=== PATIENT | male | born 1985 | race African-American/Black ===

== ENCOUNTER → 2020-07-18 08:32 | Outpatient (BNVA) | payer BC, SELFPAY | PROVIDERS: PCP Registered Nurse Community Health; Visit Provider Physician Assistant ==

== ENCOUNTER → 2020-07-25 14:15 | Outpatient (BNVA) | payer BC, SELFPAY | PROVIDERS: PCP Registered Nurse Community Health; Visit Provider Urology ==

== ENCOUNTER 2020-08-13 06:33 | Day surgery (SDC) | payer BC, SELFPAY ==
[2020-08-03 17:51] VITALS: BMI 34.7
--- NOTE | 2020-08-10 12:04 | P.CONAN_ITS ---
Documented by User: Shaylee Dudley 08/10/20 12:05 HPI - Anesthesia Eval Consult details Narrative: 35yo M for Circumcision PMFSH Active Problems Active Problems: All Active Problems (Updated 08/03/20 @ 17:34 by Sue Hoffman RN) Diabetes (Acute) Rectal bleeding (Acute) Family history of colon cancer (Acute) Diarrhea (Acute) Balanitis (Acute) Past Medical History Medical History Back pain Diabetes Hyperlipidemia Hypertension Smoker Family History Family History Maternal Grandmother Diabetes Alzheimer disease Father Cancer Diabetes Maternal Aunt Cancer Maternal Aunt Cancer Social History Social History Household Members: Spouse Alcohol intake: current Alcohol intake frequency: holidays/special occasions only Smoking Status: Current every day smoker Tobacco Type: Cigarette Packs Per Day: 1 Cigarettes Per Day: 1 Smoked in Last 30 Days: Yes Use of substances other than those prescribed or required for medical reasons: No Have you been hit, kicked, punched, or otherwise hurt by someone within the past year? If so, by whom?: No Advance Directives: No Advance Directives Information Provided: No Advance Directives on File: No Recently lost weight without trying: No Meds Allergies Allergy/AdvReac Type Severity Reaction Status Date / Time aspirin [ASPIRIN] Allergy Severe UNKNOWN Verified 07/18/20 08:33 Home Medications Medication Instructions Recorded Confirmed Last Taken Type lisinopril 10 mg tablet 10 mg PO DAILY 07/18/20 08/03/20 Unknown History blood pressure test kit-large #1 ea 07/25/20 Unknown History glipizide 5 mg tablet 5 mg PO BID 07/25/20 08/03/20 Unknown History hydrocortisone 1 % topical cream 1 appl TOPICAL BID 07/25/20 08/03/20 Unknown History lancets 33 gauge #100 ea 07/25/20 Unknown History rosuvastatin 20 mg tablet 20 mg PO BEDTIME 07/25/20 08/03/20 Unknown History insulin glargine [Lantus U-100 12 unit SUBCUT QPM 08/03/20 08/03/20 Unknown History Insulin] Exam Exam Date and Time: August 10, 2020 1204 Height,Weight and Vital Signs: Height 5 ft 9 in Weight 106.594 kg Assessment and Plan Assessment Anesthesia Assessment: Chart Reviewed Documented by User: Martine Enriquez 08/13/20 07:27 [facility] Past Medical History Medical History Back pain Diabetes Hyperlipidemia Hypertension Smoker Family History Family History Maternal Grandmother Diabetes Alzheimer disease Father Cancer Diabetes Maternal Aunt Cancer Maternal Aunt Cancer Social History Social History Household Members: Spouse Alcohol intake: current Alcohol intake frequency: holidays/special occasions only Smoking Status: Current every day smoker Tobacco Type: Cigarette Packs Per Day: 1 Cigarettes Per Day: 1 Smoked in Last 30 Days: Yes Use of substances other than those prescribed or required for medical reasons: No Have you been hit, kicked, punched, or otherwise hurt by someone within the past year? If so, by whom?: No Advance Directives: No Advance Directives Information Provided: No Advance Directives on File: No Recently lost weight without trying: No Meds Allergies Allergy/AdvReac Type Severity Reaction Status Date / Time aspirin [ASPIRIN] Allergy Severe UNKNOWN Verified 07/18/20 08:33 Home Medications Medication Instructions Recorded Confirmed Last Taken Type lisinopril 10 mg tablet 10 mg PO DAILY 07/18/20 08/03/20 Unknown History blood pressure test kit-large #1 ea 07/25/20 Unknown History glipizide 5 mg tablet 5 mg PO BID 07/25/20 08/03/20 Unknown History hydrocortisone 1 % topical cream 1 appl TOPICAL BID 07/25/20 08/03/20 Unknown History lancets 33 gauge #100 ea 07/25/20 Unknown History rosuvastatin 20 mg tablet 20 mg PO BEDTIME 07/25/20 08/03/20 Unknown History insulin glargine [Lantus U-100 12 unit SUBCUT QPM 08/03/20 08/03/20 Unknown History Insulin] Exam Airway Mallampati Class: II TM Dist: >3cm Neck ROM: Full Assessment and Plan Assessment Anesthesia Assessment: Anesthesia Plan Discussed and Chart Reviewed Final Anesthetic Review NPO: Yes ASA Class: II Final Preanesthetic Review: No Changes in Pt Med Stat, Meds/Allgs Chart Reviewed, Consent Obtained/Reviewed and Anes Risks/Benef Reviewed Patient Risk: Intermediate Procedure Risk: Low Assessment/Block/Sedation in SS: Assess/Block/Sedation-SS Anesthetic Plan Anesthetic Plan: GA Disposition: Standard PACU
[2020-08-13 07:16] LABS: Glucose, Whole Blood 210 mg/dL (60-115)
[2020-08-13] MEDS: Lactated Ringers 1,000 ML 100 ML IVCONT (07:33)
--- NOTE | 2020-08-13 07:33 | MHC.SHP ---
Pre-Procedural Eval Section A The patient is an INPATIENT: No Changes since office visit: No Cold of Flu in the past 2 weeks, No New Medical Problems, No Changes in Medication and No Patient answered all questions The History & Physical has been completed within 30 days and I have reviewed it.: Yes Section B Chief Complaint: balanitis Allergies: Allergies Allergy/AdvReac Type Severity Reaction Status Date / Time aspirin [ASPIRIN] Allergy Severe UNKNOWN Verified 07/18/20 08:33 Plan Diagnosis/Plan: Unchanged (circumcision) I have reviewed the history and physical and performed a pertinent physical examination on my patient. No changes have occurred unless specified.
[2020-08-13] MEDS: levoFLOXacin/D5W 500 MG/100 ML PIGGYBACK 100 MG IV (07:51)
[2020-08-13 09:07] VITALS: BP 129/70; PULSE 80; RESP 20; TEMP 36.3; O2SAT 100
--- NOTE | 2020-08-13 09:08 | PM.OP ---
Brief Operative Note Date of Service: 08/13/20 Pre-op diagnosis: Phimosis Post-op diagnosis: same (Circumcision) Procedure: Circumcision Surgeon: Vasu Escobedo MD Anesthesia: GLMA Estimated blood loss (mL): 0 Pathology: other Condition: stable Disposition: same day
--- NOTE | 2020-08-13 09:09 | P.OP_ITS ---
Operative Note Operative Note Date of Service: 08/13/20 Narrative: PreOperative Diagnosis: Balanitis and phimosis Post Operative Diagnosis: Balanitis and phimosis Procedure: Circumcision Surgeon: Dr Vasu Escobedo Anesthesia: General Indications for procedure: Recurring balanitis in inability to withdrawal foreskin of penile glans. Risks and benefits including bleeding, scarring, need for revision surgery been discussed. Procedure: After informed consent was verified the patient was brought to the operating room and placed in a supine position. Anesthesia was administered per protocol. The patient was prepped and draped sterile fashion. Safety pause time-out was performed. Antibiotics have been given. The penis was examined and proximal incision marked that lay just proximal to the resting position of the penile sulcus. This was followed around the circumference of the penis. A penile ring block was performed using 1% lidocai ne with no epinephrine. Approximately 8 cc. The proximal incision was developed with sharp blade running circumferentially around the penis. The skin was to give a 1 cm separation between the foreskin in the remaining penile shaft skin. The foreskin was withdrawn and the penile glans exposed. A a distal incision was made approximately 5 mm proximal to the penile sulcus. At the area of the frenulum care was taken to empty the penile frenulum intact. Using clamps the dorsal skin was elevated. Using Metzenbaum scissors the avascular plane was entered and proximal and distal incision were joined. The bridging skin was elevated and clamped. It was then divided using Bovie. The sleeve of tissue was then removed circumferentially around the penis using cautery in order to minimize bleeding. The shaft was then examined in any bleeding areas were controlled. More local anesthetic was injected into the plane beneath avascular plane to help with postprocedure pain management. The skin edges after they were appropriately examined low reapposed. A 3-0 chromic suture was placed at 12:00 o'clock and 06:00 o'clock positions. Interrupted 3-0 was then placed the 09:00 o'clock and 3 o'clock position. Each quadrant was then filled with 3 sutures using 4-0 chromic. At the completion of the procedure there was adequate hemostasis. The incision was washed and dried. Antibiotic cream was applied to the incision. A Breanna wrap was applied followed by a Coban dressing. Xeroform gauze had been used to cover antibiotic ointment. He tolerated the procedure well and was extubated in the room and transferred in stable condition to the recovery area. Pathology: Foreskin Drains: none
[2020-08-13 09:12] VITALS: BP 129/79; PULSE 86; RESP 20; O2SAT 96
[2020-08-13 09:17] VITALS: BP 126/81; PULSE 88; RESP 20; O2SAT 96
[2020-08-13 09:22] VITALS: BP 122/73; PULSE 81; RESP 20; O2SAT 96
[2020-08-13] MEDS: oxyCODONE HCl Immed Release 5 MG TABLET PO (09:25)
[2020-08-13] MEDS: Acetaminophen 325 MG TABLET 650 MG PO (09:25)
[2020-08-13 09:37] VITALS: BP 119/65; PULSE 76; RESP 16; TEMP 36.2; O2SAT 97
== END 2020-08-13 10:14 | disposition home or self-care (01) ==
PROVIDERS: Visit Provider Urology
PROC: (CPT 54161; principal; 2020-08-13 08:20)
DX: N48.1 Balanitis (principal); N47.1 Phimosis; I10 Essential (primary) hypertension; E11.9 Type 2 diabetes mellitus without complications; Z79.4 Long term (current) use of insulin; Z79.899 Other long term (current) drug therapy; F17.210 Nicotine dependence, cigarettes, uncomplicated
CPT/HCPCS: 54161; 82947; 88304; 88342; J1100; J1956; J2250; J2405; J3010

== ENCOUNTER → 2020-09-14 10:49 | Outpatient (BNVA) | payer BC, SELFPAY | PROVIDERS: Visit Provider Urology ==

== ENCOUNTER 2022-07-26 15:54 | Emergency (ER) | payer MEDICAID, SELFPAY ==
--- NOTE | ~2022-07-26 | CT_ITS ---
EXAMINATION: CT ABDOMEN AND PELVIS WITHOUT CONTRAST CLINICAL INFORMATION: Right flank pain. COMPARISON: None. TECHNIQUE: Multidetector volumetric imaging was performed from the superior aspect of the liver through the pubic symphysis. Sagittal and coronal reformatted images were obtained on the technologist's workstation. This CT examination was performed using dose optimization techniques as appropriate, variously including the following: *Automated exposure control *Adjustment of mA and/or kV according to patient size (this includes techniques or standardized protocols for targeted exams where dose is matched to indication/reason for exam; i.e. extremities or head) *Use of iterative reconstruction technique DLP: 647 mGy-cm FINDINGS: LUNG BASES: The visualized lung bases are unremarkable. LIVER, GALLBLADDER, AND BILIARY TREE: The liver is enlarged measuring 24.6 cm craniocaudally and demonstrates decreased parenchymal attenuation most suggestive of hepatic steatosis. Otherwise, the liver is normal in shape without discrete focal lesion in this limited noncontrast examination. Normal appearance of the gallbladder. No biliary ductal dilatation. PANCREAS: Unremarkable. SPLEEN: Unremarkable. ADRENAL GLANDS: Unremarkable. KIDNEYS AND URETERS: The kidneys are normal in size, shape, and attenuation. No hydronephrosis, hydroureter, or calculi seen. No perinephric stranding. BLADDER: Diffuse urinary bladder wall thickening. GASTROINTESTINAL TRACT: The stomach and small bowel are nondilated. Normal appendix. No pericolonic inflammatory changes or evidence of bowel obstruction. ABDOMINAL WALL: No significant hernia is appreciated. LYMPH NODES: Nonspecific prominent periportal lymph nodes. VASCULAR: Unremarkable. PELVIC VISCERA: Unremarkable. OSSEOUS STRUCTURES: Unremarkable. CT/CT abdomen pelvis wo IV con IMPRESSION: 1. Hepatomegaly and hepatic steatosis. 2. Diffuse urinary bladder wall thickening which could be seen in the setting of cystitis. Correlate with urinalysis. 3. No nephrolithiasis or hydronephrosis. 4. Nonspecific prominent periportal lymph nodes, likely reactive in the setting of hepatic steatosis.
--- NOTE | 2022-07-26 16:18 | ED_ITS ---
HPI - Abdominal Pain General Chief Complaint: Abdominal Pain <Analy Oakes CNP - Last Filed: 07/26/22 16:23> Stated Complaint: right sided abd pain <Analy Oakes CNP - Last Filed: 07/26/22 16:23> Time Seen by Provider: 07/26/22 17:09 <Analy Oakes CNP - Last Filed: 07/26/22 16:23> Source: patient <Allison Ryan NP - Last Filed: 07/26/22 20:25> Mode of arrival: ambulatory <Allison Ryan NP - Last Filed: 07/26/22 20:25> Limitations: language barrier <Allison Ryan NP - Last Filed: 07/26/22 20:25> History of Present Illness HPI narrative: 37-year-old male presents with right-sided abdominal pain that started 2 years ago and dysuria. He also reports urinary retention. <Allison Ryan NP - Last Filed: 07/26/22 20:25> MD elicited complaint: abdominal pain and flank pain <Allison Ryan NP - Last Filed: 07/26/22 20:25> Onset (ago): day(s) (2) <Allison Ryan NP - Last Filed: 07/26/22 20:25> Pain Consistency: constant <Allison Ryan NP - Last Filed: 07/26/22 20:25> Severity: moderate <Allison Ryan NP - Last Filed: 07/26/22 20:25> Quality: aching <Allison Ryan NP - Last Filed: 07/26/22 20:25> Migration to: RLQ and R flank <Allison Ryan NP - Last Filed: 07/26/22 20:25> Relieving factors: nothing <Allison Ryan NP - Last Filed: 07/26/22 20:25> Associated symptoms: other (Testicular pain) <Allison Ryan NP - Last Filed: 07/26/22 20:25> Related Data Home Medications: Home Medications Medication Instructions Recorded Confirmed lisinopril 10 mg tablet 10 mg PO DAILY 07/18/20 08/03/20 blood pressure test kit-large #1 ea 07/25/20 glipizide 5 mg tablet 5 mg PO BID 07/25/20 08/03/20 hydrocortisone 1 % topical cream 1 appl topical BID 07/25/20 08/03/20 lancets 33 gauge #100 ea 07/25/20 rosuvastatin 20 mg tablet 20 mg PO BEDTIME 07/25/20 08/03/20 insulin glargine 100 unit/mL 12 unit subcut QPM 08/03/20 08/03/20 subcutaneous cartridge Previous Rx's Medication Instructions Recorded clotrimazole-betamethasone 1 1 appl topical BID 4 weeks #15 07/25/20 %-0.05 % topical cream grams sulfamethoxazole 400 1 tab PO DAILY 10 days #10 tabs 08/13/20 mg-trimethoprim 80 mg tablet (Bactrim) tramadol 50 mg tablet 50 mg PO Q6H PRN pain (scale score 08/13/20 4-6) #14 tabs cefuroxime axetil 500 mg tablet 500 mg PO Q12H 10 days #20 tabs 07/26/22 <Analy Oakes CNP - Last Filed: 07/26/22 16:23> Allergies/Adverse Reactions: Allergies Allergy/AdvReac Type Severity Reaction Status Date / Time aspirin [ASPIRIN] Allergy Severe UNKNOWN Verified 07/26/22 16:19 <Analy Oakes CNP - Last Filed: 07/26/22 16:23> Review of Systems Review of Systems Constitutional: No Fever, No Chills Cardiovascular: No Chest Pain, No SOB Respiratory: No Cough, No Dyspnea Gastrointestinal: No Nausea, No Vomiting, No Diarrhea, positive abdominal Pain and right flank pain Genitourinary: Positive Dysuria, No Hematuria Musculoskeletal: No joint pain, No Myalgias, No Joint Swelling Skin: No Skin lacerations, No rash Neuro: No Weakness, No Numbness, No Paresthesias, No Dizziness, No Headache <Allison Ryan NP - Last Filed: 07/26/22 20:25> Yes all other systems are reviewed and are negative <Allison Ryan NP - Last Filed: 07/26/22 20:25> PMFSH Past Medical History Attestation statement: The following information was validated with the patient. <Allison Ryan NP - Last Filed: 07/26/22 20:25> Source: old records reviewed <Allison Ryan NP - Last Filed: 07/26/22 20:25> Medical History: Medical History Back pain Diabetes Hyperlipidemia Hypertension Smoker <Analy Oakes CNP - Last Filed: 07/26/22 16:23> Family History Family History: Family History Maternal Grandmother Diabetes Alzheimer disease Father Cancer Diabetes Maternal Aunt Cancer Maternal Aunt Cancer <Analy Oakes CNP - Last Filed: 07/26/22 16:23> Social History Social History: Social History Household Members: Spouse Alcohol intake: current Alcohol intake frequency: holidays/special occasions only Cigarette Packs Per Day: 1 Cigarettes Per Day: 1 Advance Directives: No Advance Directives Information Provided: No <Analy Oakes CNP - Last Filed: 07/26/22 16:23> Physical Exam ED Vital Signs: Vital Signs - 24 hr 07/26/22 16:19 07/26/22 17:19 07/26/22 17:57 Temperature 98.2 F 98.5 F 98.5 F Pulse Rate 89 76 82 Respiratory Rate 16 18 19 Blood Pressure 119/80 120/72 101/65 Pulse Oximetry 100 97 97 Oxygen Delivery Method Room Air Room Air Room Air BMI result Body Mass Index 32.9 <Analy Oakes CNP - Last Filed: 07/26/22 16:23> Vital Signs - 24 hr 07/26/22 16:19 07/26/22 17:19 07/26/22 17:57 Temperature 98.2 F 98.5 F 98.5 F Pulse Rate 89 76 82 Respiratory Rate 16 18 19 Blood Pressure 119/80 120/72 101/65 Pulse Oximetry 100 97 97 Oxygen Delivery Method Room Air Room Air Room Air BMI result Body Mass Index 32.9 <Allison Ryan NP - Last Filed: 07/26/22 20:25> Appearance: Alert. Oriented X3. No acute distress. Eyes: Pupils equal, round and reactive to light. Neck: Normal inspection. Neck supple. CVS: Normal heart rate and rhythm. Respiratory: No respiratory distress. Abdomen: Soft and nontender. Skin: Skin warm and dry. Normal skin color. Neuro: No motor deficit. No sensory deficit. Cranial nerves 2-12 intact. <Allison Ryan NP - Last Filed: 07/26/22 20:25> Course Course Course Narrative: This is an RME: Additional HPI, ROS, PE not included below will be deferred to primary provider. Patient is a 37 [id number] who presents to emergency department for evaluation of abdominal pain. Patient reports onset of right mid/upper abdominal pain 2 days ago that is wrapping around to his back/flank. Yesterday he developed dysuria, voiding small amounts at a time, and nausea. Denies hematuria. Denies fevers, chills, vomiting, diarrhea, constipation. Expresses concern for potential history of nephrolithiasis in the past, though this is uncertain. PE: R CVAT Plan: Labs, urinalysis, CT abdomen and pelvis <Analy Oakes CNP - Last Filed: 07/26/22 16:23> This is an RME: Additional HPI, ROS, PE not included below will be deferred to primary provider. Patient is a 37 [id number] who presents to emergency department for evaluation of abdominal pain. Patient reports onset of right mid/upper abdominal pain 2 days ago that is wrapping around to his back/flank. Yesterday he developed dysuria, voiding small amounts at a time, and nausea. Denies hematuria. Denies fevers, chills, vomiting, diarrhea, constipation. Expresses concern for potential history of nephrolithiasis in the past, though this is uncertain. PE: R CVAT Plan: Labs, urinalysis, CT abdomen and pelvis 37-year-old male presents with abdominal pain radiating to his right flank, has had dysuria, urinary retention, and reports of testicular pain for over year. Patient states that he is not sexually active although he is . He also reports to be diabetic and not taking his medications. Patient was very vague about his reasoning up not taking his medications, states that he is an appointment in September to establish care. Patient states to have nausea but is asking for a sandwich. I did offer Zofran however he instead of medications he preferred to eat. Patient's labs were completed while he was in the emergency department waiting room as well as a CT scan of the abdomen and pelvis. CT scan indicate cystitis of the bladder. Considering patient's symptoms, I feel that this patient should be tested for STI infection, however he declines stating that he has not been sexually active for over year. He does have a history of balanitis. He does have testicular pain, I did offer scrotal ultrasound however he declined this as well. I did describe in explicit detail the risks of not complying with care. He states that his A1c is 13. I also described in detail risks of not caring for his diabetes which includes kidney disease, heart disease, impotence, peripheral artery disease. He also reports that his father was diagnosed with colon cancer at the age of 40, searing this patient is 37, he should have a colonoscopy. I did also discuss this with him. CT scan does not indicate any obvious obstructions or growth consistent with colon cancer however I did inform the patient that colonoscopy is the best test for detecting colon cancer. 18:00 will treat with cefuroxime for cystitis, patient declines treatments for CHEK2 transmitted infections. Patient will be discharge home. diamond finishing supervisor utilized for all correspondence. Google translate utilized for discharge instructions. <Allison Ryan NP - Last Filed: 07/26/22 20:25> Medical Decision Making Differential Diagnosis Differential Diagnoses: The differential diagnosis associated with the presentation includes <Allison Ryan NP - Last Filed: 07/26/22 20:25> Cystitis, STI, medical noncompliance <Allison Ryan NP - Last Filed: 07/26/22 20:25> Lab Data MDM Lab Attestation statement: I reviewed the patient's lab results. <Allison Ryan NP - Last Filed: 07/26/22 20:25> Result Diagrams: 07/26/22 16:54 07/26/22 16:54 <Analy Oakes CNP - Last Filed: 07/26/22 16:23> Labs: Lab Results 07/26/22 07/26/22 07/26/22 Range/Units 16:54 16:54 17:29 WBC 10.5 (4.8-10.8) X10*3/uL RBC 5.02 (4.60-5.80) X10*6/uL Hgb 14.2 (14.0-18.0) g/dl Hct 41.4 L (42.0-52.0) % MCV 82.5 (80.0-98.0) fL MCH 28.3 (27.0-33.0) pg MCHC 34.3 (31.0-36.0) g/dl RDW 12.5 (11.0-16.0) % Plt Count 215 (160-400) X10*3/uL MPV 11.0 (9.4-12.4) fL Immature Gran % (Auto) 0.4 (0.0-0.4) % Neut % (Auto) 65.1 (45-73) % Lymph % (Auto) 25.4 (20-40) % Harris % (Auto) 5.6 (2-11) % Eos % (Auto) 3.2 (0-4) % Baso % (Auto) 0.3 (0-2) % Lymph # (Auto) 2.7 (1.2-4.9) X10*3/uL Harris # (Auto) 0.6 (0.1-1.2) X10*3/uL Eos # (Auto) 0.3 (0.0-0.4) X10*3/uL Baso # (Auto) 0.0 (0.0-0.2) X10*3/uL Abs Immat Gran (auto) 0.04 H (0.00-0.03) X10*3/uL Absolute Neuts (auto) 6.9 (2.0-8.3) x10*3/uL Absolute Nucleated RBC 0.000 (0.0-0.012) X10*3/uL Nucleated RBC % (auto) 0.0 (0.0-0.2) /100WBC Sodium 139 (135-145) mmol/L Potassium 4.6 (3.3-5.1) mmol/L Chloride 102 (96-108) mmol/L Carbon Dioxide 25 (22-29) mmol/L Anion Gap 17 (12-20) BUN 12 (9-16) mg/dL Creatinine 0.79 (0.5-1.4) mg/dL Estim Creat Clear Calc 151.5 Estimated GFR > 60 Random Glucose 230 H (60-115) mg/dL Calcium 9.6 (8.4-10.2) mg/dL Total Bilirubin 0.3 (0.0-1.0) mg/dL AST 23 (5-37) U/L ALT 36 (0-40) U/L Alkaline Phosphatase 94 (39-117) U/L Total Protein 7.2 (6.5-8.0) g/dL Albumin 4.4 (3.5-5.0) g/dL Lipase 14 (8-78) U/L Urine Color Yellow Urine Appearance Clear Urine pH 6.0 (5.0-9.0) Ur Specific [place] 1.025 (1.005-1.025) Urine Protein Trace (Neg-Trace) mg/dL Urine Glucose (UA) >=1000 H (Negative) mg/dL Urine Ketones Negative (Negative) mg/dL Urine Blood Negative (Negative) Urine Nitrite Negative (Negative) Ur Leukocyte Esterase Negative (Negative) Urine RBC 0-2 (0-2) /HPF Urine WBC 0-5 (0-5) /HPF Ur Squamous Epith Cells 0-2 (0-2) /HPF Urine Bacteria None Seen (None Seen) Hyaline Casts 0-2 (0-2) /LPF <Analy Oakes, HOUSEHOLD APPLIANCES SALESPERSON - Last Filed: 07/26/22 16:23> Lab Results 07/26/22 07/26/22 07/26/22 Range/Units 16:54 16:54 17:29 WBC 10.5 (4.8-10.8) X10*3/uL RBC 5.02 (4.60-5.80) X10*6/uL Hgb 14.2 (14.0-18.0) g/dl Hct 41.4 L (42.0-52.0) % MCV 82.5 (80.0-98.0) fL MCH 28.3 (27.0-33.0) pg MCHC 34.3 (31.0-36.0) g/dl RDW 12.5 (11.0-16.0) % Plt Count 215 (160-400) X10*3/uL MPV 11.0 (9.4-12.4) fL Immature Gran % (Auto) 0.4 (0.0-0.4) % Neut % (Auto) 65.1 (45-73) % Lymph % (Auto) 25.4 (20-40) % Harris % (Auto) 5.6 (2-11) % Eos % (Auto) 3.2 (0-4) % Baso % (Auto) 0.3 (0-2) % Lymph # (Auto) 2.7 (1.2-4.9) X10*3/uL Harris # (Auto) 0.6 (0.1-1.2) X10*3/uL Eos # (Auto) 0.3 (0.0-0.4) X10*3/uL Baso # (Auto) 0.0 (0.0-0.2) X10*3/uL Abs Immat Gran (auto) 0.04 H (0.00-0.03) X10*3/uL Absolute Neuts (auto) 6.9 (2.0-8.3) x10*3/uL Absolute Nucleated RBC 0.000 (0.0-0.012) X10*3/uL Nucleated RBC % (auto) 0.0 (0.0-0.2) /100WBC Sodium 139 (135-145) mmol/L Potassium 4.6 (3.3-5.1) mmol/L Chloride 102 (96-108) mmol/L Carbon Dioxide 25 (22-29) mmol/L Anion Gap 17 (12-20) BUN 12 (9-16) mg/dL Creatinine 0.79 (0.5-1.4) mg/dL Estim Creat Clear Calc 151.5 Estimated GFR > 60 Random Glucose 230 H (60-115) mg/dL Calcium 9.6 (8.4-10.2) mg/dL Total Bilirubin 0.3 (0.0-1.0) mg/dL AST 23 (5-37) U/L ALT 36 (0-40) U/L Alkaline Phosphatase 94 (39-117) U/L Total Protein 7.2 (6.5-8.0) g/dL Albumin 4.4 (3.5-5.0) g/dL Lipase 14 (8-78) U/L Urine Color Yellow Urine Appearance Clear Urine pH 6.0 (5.0-9.0) Ur Specific [place] 1.025 (1.005-1.025) Urine Protein Trace (Neg-Trace) mg/dL Urine Glucose (UA) >=1000 H (Negative) mg/dL Urine Ketones Negative (Negative) mg/dL Urine Blood Negative (Negative) Urine Nitrite Negative (Negative) Ur Leukocyte Esterase Negative (Negative) Urine RBC 0-2 (0-2) /HPF Urine WBC 0-5 (0-5) /HPF Ur Squamous Epith Cells 0-2 (0-2) /HPF Urine Bacteria None Seen (None Seen) Hyaline Casts 0-2 (0-2) /LPF <Allison Ryan NP - Last Filed: 07/26/22 20:25> Independent Interpretation I performed an independent interpretation of an: CT Scan <Allison Ryan NP - Last Filed: 07/26/22 20:25> Radiology Impression Discussion of test interpretation with radiology: I have reviewed the radiologist's reading. <Allison Ryan NP - Last Filed: 07/26/22 20:25> Radiologist Impression: EXAMINATION: CT ABDOMEN AND PELVIS WITHOUT CONTRAST? CLINICAL INFORMATION: Right flank pain.? COMPARISON: None.? TECHNIQUE: Multidetector volumetric imaging was performed from the superior aspect of the liver through the pubic symphysis. Sagittal and coronal reformatted images were obtained on the technologist's workstation.? This CT examination was performed using dose optimization techniques as appropriate, variously including the following: *Automated exposure control *Adjustment of mA and/or kV according to patient size (this includes techniques or standardized protocols for targeted exams where dose is matched to indication/reason for exam; i.e. extremities or head) *Use of iterative reconstruction technique DLP: 647 mGy-cm FINDINGS: LUNG BASES: The visualized lung bases are unremarkable.? LIVER, GALLBLADDER, AND BILIARY TREE: The liver is enlarged measuring 24.6 cm craniocaudally and demonstrates decreased parenchymal attenuation most suggestive of hepatic steatosis. Otherwise, the liver is normal in shape without discrete focal lesion in this limited noncontrast examination. Normal appearance of the gallbladder. No biliary ductal dilatation. PANCREAS: Unremarkable.? SPLEEN: Unremarkable.? ADRENAL GLANDS: Unremarkable.? KIDNEYS AND URETERS: The kidneys are normal in size, shape, and attenuation. No hydronephrosis, hydroureter, or calculi seen. No perinephric stranding. ? BLADDER: Diffuse urinary bladder wall thickening.? GASTROINTESTINAL TRACT: The stomach and small bowel are nondilated. Normal appendix. No pericolonic inflammatory changes or evidence of bowel obstruction.? ABDOMINAL WALL: No significant hernia is appreciated.? LYMPH NODES: Nonspecific prominent periportal lymph nodes. VASCULAR: Unremarkable. PELVIC VISCERA: Unremarkable.? OSSEOUS STRUCTURES: Unremarkable.? CT/CT abdomen pelvis wo IV con IMPRESSION: 1.? Hepatomegaly and hepatic steatosis. 2.? Diffuse urinary bladder wall thickening which could be seen in the setting of cystitis. Correlate with urinalysis. 3.? No nephrolithiasis or hydronephrosis. 4.? Nonspecific prominent periportal lymph nodes, likely reactive in the setting of hepatic steatosis. <Allison Ryan NP - Last Filed: 07/26/22 20:25> External Record Review External record reviewed: Outpatient record and Prior outpatient labs <Allison Ryan NP - Last Filed: 07/26/22 20:25> Chronic Conditions Patient?s care impacted by: Diabetes <Allison Ryan NP - Last Filed: 07/26/22 20:25> Discharge Plan Discharge Clinical Impression: Abdominal pain, Pain in both testicles, Cystitis <Analy Oakes CNP - Last Filed: 07/26/22 16:23> Patient Disposition: Home, Self-Care <Analy Oakes CNP - Last Filed: 07/26/22 16:23> Instructions: Testicle Pain (ED), Abdominal Pain (ED), Interstitial Cystitis (ED) <Analy Oakes CNP - Last Filed: 07/26/22 16:23> Additional Instructions: Le evaluaron por dolor abdominal. La tomograf?a computarizada muestra cistitis. [place] podr?a ser katalina infecci?n de la vejiga o katalina infecci?n de transmisi?n sexual. Reportaste dolor testicular claudia m?s de un a?o. [place] hacerte katalina ecograf?a testicular. Rechaz? ellyn servicio mientras estaba en el departamento de emergencias. [place] cefuroxima dos veces al d?a claudia los pr?ximos 10 d?as. Ellyn medicamento es un antibi?nagi. Contin?e el seguimiento con johnson marie de atenci?n primaria en [place]. Tiene antecedentes familiares de c?ncer de colon y tiene diabetes no tratada. La diabetes no tratada te matar?. [place] por elegir ellyn departamento de emergencias para johnson evaluaci?n. Por favor, peg un seguimiento con el m?dico de atenci?n primaria seg?n sea necesario. Regrese al departamento de emergencias por cualquier s?ntoma nuevo, preocupante o que empeore. You were evaluated for abdominal pain. CT scan shows cystitis. This could be a bladder infection or sexually transmitted infection. You did report testicular pain for over a year. You must have a testicular ultrasound. You declined this service while you were in the emergency department. Please take cefuroxime twice a day for the next 10 days. This medication is an antibiotic. Continue follow-up with your primary care appointment in September. You have a family history of colon cancer, and you have untreated diabetes. Untreated diabetes will kill you. Thank you for choosing this emergency department for evaluation. Please follow-up with primary care physician as needed. Return to the emergency department for any new, concerning, or worsening symptoms. <Analy Oakes CNP - Last Filed: 07/26/22 16:23> Prescriptions: New cefuroxime axetil 500 mg tablet 500 mg PO Q12H 10 Days Qty: 20 0RF No Action insulin glargine 100 unit/mL Cartridge 12 unit SUBCUT QPM tramadol 50 mg tablet 50 mg PO Q6H PRN (Reason: pain (scale score 4-6)) Qty: 14 0RF sulfamethoxazole-trimethoprim [Bactrim] 400-80 mg tablet 1 tab PO DAILY 10 Days Qty: 10 0RF lisinopril 10 mg tablet 10 mg PO DAILY clotrimazole-betamethasone 1-0.05 % cream 1 appl topical BID 28 Days Qty: 15 0RF Rx Instructions: Apply thin coat 2 times per day <Analy Oakes CNP - Last Filed: 07/26/22 16:23> Interventions: ED Discharge Assessment Last Done: 07/26/22 18:24 <Analy Oakes CNP - Last Filed: 07/26/22 16:23> Discharge Date/Time: 07/26/22 18:25 <Analy Oakes CNP - Last Filed: 07/26/22 16:23>
[2022-07-26 16:19] VITALS: BP 119/80; PULSE 89; RESP 16; TEMP 36.8; O2SAT 100; BMI 32.9
[2022-07-26 16:57] LABS: MANUAL DIFF FLAG NO
[2022-07-26 16:59] LABS: Basophils Percent Auto 0.3 % (0-2); Eosinophils Absolute Auto 0.3 X10*3/uL (0.0-0.4); Eosinophils Percent Auto 3.2 % (0-4); Hematocrit 41.4 % (42.0-52.0); Hemoglobin 14.2 g/dl (14.0-18.0); Imm Gran Abs Auto 0.04 X10*3/uL (0.00-0.03); Imm Gran Pct Auto 0.4 % (0.0-0.4); Lymphocytes Absolute Auto 2.7 X10*3/uL (1.2-4.9); Lymphocytes Percent Auto 25.4 % (20-40); Mean Corpuscular HGB Conc 34.3 g/dl (31.0-36.0); Mean Corpuscular Hemoglobin 28.3 pg (27.0-33.0); Mean Corpuscular Volume 82.5 fL (80.0-98.0); Monocytes Absolute Auto 0.6 X10*3/uL (0.1-1.2); Monocytes Percent Auto 5.6 % (2-11); Neutrophils Absolute Auto 6.9 x10*3/uL (2.0-8.3); Neutrophils Percent Auto 65.1 % (45-73); Platelet Count 215 X10*3/uL (160-400); Red Blood Count 5.02 X10*6/uL (4.60-5.80); Red Cell Distribution Width 12.5 % (11.0-16.0); White Blood Count 10.5 X10*3/uL (4.8-10.8)
[2022-07-26 17:19] VITALS: BP 120/72; PULSE 76; RESP 18; TEMP 36.9; O2SAT 97
[2022-07-26 17:24] LABS: Alanine Aminotransferase 36 U/L (0-40); Albumin Level 4.4 g/dL (3.5-5.0); Alkaline Phosphatase 94 U/L (39-117); Anion Gap 17 (12-20); Aspartate Amino Transferase 23 U/L (5-37); Bilirubin Total 0.3 mg/dL (0.0-1.0); Blood Urea Nitrogen 12 mg/dL (9-16); Calcium 9.6 mg/dL (8.4-10.2); Carbon Dioxide 25 mmol/L (22-29); Chloride 102 mmol/L (96-108); Creatinine Clr Calc Pharmacy 151.5; Estimated Glomerular Filt Rate > 60; Glucose Random 230 mg/dL (60-115); Lipase 14 U/L (8-78); Potassium 4.6 mmol/L (3.3-5.1); Sodium 139 mmol/L (135-145); Total Protein 7.2 g/dL (6.5-8.0)
[2022-07-26 17:41] LABS: Appearance Urine Clear; Color Urine Yellow; Glucose Urine UA >=1000 mg/dL (Negative); Leukocyte Esterase Urine Negative (Negative); Nitrite Urine Negative (Negative); Specific Gravity - Urine 1.025 (1.005-1.025); UMIC TRIGGER UACC YES; Urine Blood Negative (Negative); Urine Ketones Negative (Negative); Urine Protein Trace mg/dL (Neg-Trace)
[2022-07-26 17:49] LABS: Bacteria Urine None Seen (None Seen); Hyaline Casts Urine 0-2 /LPF (0-2); RBC Urine 0-2 /HPF (0-2); Squamous Epithelial Cell Urine 0-2 /HPF (0-2); WBC Urine 0-5 /HPF (0-5)
[2022-07-26 17:57] VITALS: BP 101/65; PULSE 82; RESP 19; TEMP 36.9; O2SAT 97
== END 2022-07-26 18:25 | disposition home or self-care (01) ==
PROVIDERS: Nurse Practitioner Family; Emergency Provider Emergency Medicine; PCP Physical Medicine & Rehabilitation
DX: N30.90 Cystitis, unspecified without hematuria (principal); R10.9 Unspecified abdominal pain; N50.812 Left testicular pain; N50.811 Right testicular pain; E11.9 Type 2 diabetes mellitus without complications; I10 Essential (primary) hypertension; E78.5 Hyperlipidemia, unspecified; F17.210 Nicotine dependence, cigarettes, uncomplicated; Z79.02 Long term (current) use of antithrombotics/antiplatelets; Z79.4 Long term (current) use of insulin; Z79.899 Other long term (current) drug therapy
CPT/HCPCS: 36415; 74176; 80053; 81001; 83690; 85025; 99283; 99284

== ENCOUNTER → 2023-12-07 11:24 | Outpatient (BNVA) | payer SELFPAY | PROVIDERS: PCP Physical Medicine & Rehabilitation; Visit Provider Physician Assistant Medical | DX: Z02.79 Encounter for issue of other medical certificate (principal); Z13.29 Encounter for screening for other suspected endocrine disorder; Z13.1 Encounter for screening for diabetes mellitus | CPT/HCPCS: 82947 ==

== ENCOUNTER 2024-10-05 10:18 | Emergency (ER) | payer MEDICAID, SELFPAY ==
--- NOTE | ~2024-10-05 | CT_ITS ---
EXAMINATION: CT ABDOMEN PELVIS WITH IV CONTRAST HISTORY: Right sided abdominal pain/tenderness COMPARISON: Comparison is made with the prior examination dated 07/26/2022. TECHNIQUE: CT scan of the abdomen and pelvis was performed following administration of 85 mL Omnipaque 350 using standard departmental protocol. Coronal and sagittal reformatted images were generated and reviewed. Oral contrast material was not administered at the request of the referring physician. This CT exam was performed with one or more of the following dose reduction techniques: automated exposure control, adjustment of the mA and/or kV according to patient size, use of iterative reconstruction technique. DLP: 704 mGy-cm FINDINGS: LOWER CHEST: The visualized lung bases are clear. There is no pleural effusion. CARDIOVASCULATURE: The heart is normal in size. There is no pericardial effusion. LIVER: The liver is normal in size and contour, but demonstrates diffusely decreased attenuation, consistent with steatosis. No liver mass is identified. The hepatic and portal veins are patent. GALLBLADDER / BILE DUCTS: The gallbladder is unremarkable. There is no intra or extrahepatic biliary ductal dilatation. SPLEEN: The spleen is normal in size. No focal splenic lesion is identified. PANCREAS: The pancreas is unremarkable in appearance. ADRENAL GLANDS: Within normal limits. KIDNEYS/RETROPERITONEUM: No renal calculi are identified. There is no hydronephrosis. No renal masses are identified. LYMPH NODES: No abdominal or pelvic lymphadenopathy. VASCULATURE: The abdominal aorta is normal in caliber. MESENTERY/PERITONEUM: No free fluid. No masses. There is no free intraperitoneal gas. STOMACH: The stomach is unremarkable. SMALL BOWEL: The small bowel is normal in caliber. COLON: The colon is unremarkable. APPENDIX: Normal. URINARY BLADDER/PELVIC ORGANS: The urinary bladder is unremarkable. The prostate is normal in size. BONES / SOFT TISSUES: No suspicious bony or soft tissue abnormalities. CT/CT abdomen pelvis w IV con IMPRESSION: Hepatic steatosis. Otherwise unremarkable contrast-enhanced CT of the abdomen and pelvis. Electronically signed by: Elfego Nassar MD 10/05/2024 01:52 PM EDT
--- NOTE | ~2024-10-05 | XR_ITS ---
EXAMINATION: XR CHEST CLINICAL INFORMATION: Right sided pain, smoker COMPARISON: None available. TECHNIQUE: 2 views of the chest were obtained. FINDINGS: No significant abnormality is noted involving the heart, lungs, mediastinum, bony thorax or soft tissues. XR/XR chest 2V IMPRESSION: Unremarkable chest examination. Electronically signed by: Geraldo Calix MD 10/05/2024 11:37 AM EDT RP
--- NOTE | ~2024-10-05 | US_ITS ---
EXAMINATION: US ABDOMEN LIMITED HISTORY: RUQ pain/tenderness TECHNIQUE: Real-time grayscale ultrasound imaging of the gallbladder was performed and images were reviewed. COMPARISON: Correlation is made with a CT of the abdomen with contrast dated 07/26/2022. FINDINGS: The gallbladder is unremarkable without evidence of calculi, wall thickening, or pericholecystic fluid. There is no sonographic Garg sign. The common bile duct is normal in caliber measuring 5 mm in diameter. Incidental note is made of hepatic steatosis. US/US abdomen limited IMPRESSION: Unremarkable sonographic examination of the gallbladder. Electronically signed by: Elfego Nassar MD 10/05/2024 11:50 AM EDT
[2024-10-05 10:25] VITALS: BP 133/74; PULSE 72; RESP 16; TEMP 37.1; O2SAT 100; BMI 32.2
[2024-10-05 10:40] LABS: MANUAL DIFF FLAG NO
[2024-10-05 10:43] LABS: Basophils Percent Auto 0.2 % (0-2); Eosinophils Absolute Auto 0.2 X10*3/uL (0.0-0.4); Eosinophils Percent Auto 2.4 % (0-4); Hematocrit 39.8 % (42.0-52.0); Hemoglobin 13.9 g/dl (14.0-18.0); Imm Gran Abs Auto 0.04 X10*3/uL (0.00-0.03); Imm Gran Pct Auto 0.4 % (0.0-0.4); Lymphocytes Absolute Auto 2.4 X10*3/uL (1.2-4.9); Lymphocytes Percent Auto 24.8 % (20-40); Mean Corpuscular HGB Conc 34.9 g/dl (31.0-36.0); Mean Corpuscular Hemoglobin 28.6 pg (27.0-33.0); Mean Corpuscular Volume 81.9 fL (80.0-98.0); Mean Platelet Volume 10.3 fL (9.4-12.4); Monocytes Absolute Auto 0.6 X10*3/uL (0.1-1.2); Neutrophils Absolute Auto 6.4 x10*3/uL (2.0-8.3); Neutrophils Percent Auto 66.2 % (45-73); Platelet Count 217 X10*3/uL (160-400); Red Blood Count 4.86 X10*6/uL (4.60-5.80); Red Cell Distribution Width 12.4 % (11.0-16.0); White Blood Count 9.7 X10*3/uL (4.8-10.8)
--- NOTE | 2024-10-05 10:53 | PC.NURSE ---
Pt comes to ED today from home with c/o R abd pain 03/03 with radiation to R flank and R testicle. Pt reports pain has been present x5 months however yesterday the pain increased and he was unable to do much beside lay down. He states he attempted to get seen at [facility] but the wait was too long therefore he didn't stay. Pt reports associated ribbon like stool and pain to R testicle when urinating. Blood work pending and awaiting urine spec at this time.
--- NOTE | 2024-10-05 11:01 | ED.GENADULT ---
HPI - General Adult General Chief complaint: Abdominal Pain Stated complaint: R Side Pain Radiating To Back Time Seen by Provider: 10/05/24 11:01 History of Present Illness ED Provider: Andres BRADY narrative: The patient is a 39-year-old male who says that he has a long history of smoking. He has been smoking since the age of 11 he says. He says that for a long time he smoked 2 packs of cigarettes per day but more recently has been only smoking 1 pack of cigarettes per day. Nevertheless he is very worried about the possibility of developing cancer. He says that he has had right-sided abdominal pain for several months. Over the last week it has been worse and even more so over the last 24 hours. He says that he went to the [facility] Emergency room yesterday but there was an 8 hour wait any ultimately left without being seen. He comes here today. He does not think he has had fevers or anything in the way of sweats or chills. No significant nausea, vomiting, or diarrhea. No recent sick contacts. He has no history of abdominal surgeries. He says the pain may has been worse over the last 24 hours after eating but he is not certain. The patient believes he has a history of diabetes and hypertension but he does not have a regular doctor and is on no medications currently. He describes himself as being very irresponsible with regard to his health. Related Data Home Medications ?Medication ?Instructions ?Recorded ?Confirmed lisinopril 10 mg tablet 10 mg PO DAILY 07/18/20 08/03/20 blood pressure test kit-large #1 ea 07/25/20 glipizide 5 mg tablet 5 mg PO BID 07/25/20 08/03/20 hydrocortisone 1 % topical cream 1 appl topical BID 07/25/20 08/03/20 lancets 33 gauge #100 ea 07/25/20 rosuvastatin 20 mg tablet 20 mg PO BEDTIME 07/25/20 08/03/20 insulin glargine 100 unit/mL 12 unit subcut QPM 08/03/20 08/03/20 subcutaneous cartridge Previous Rx's ?Medication ?Instructions ?Recorded clotrimazole-betamethasone 1 1 appl topical BID 4 weeks #15 07/25/20 %-0.05 % topical cream grams sulfamethoxazole 400 1 tab PO DAILY 10 days #10 tabs 08/13/20 mg-trimethoprim 80 mg tablet (Bactrim) tramadol 50 mg tablet 50 mg PO Q6H PRN pain (scale score 08/13/20 4-6) #14 tabs cefuroxime axetil 500 mg tablet 500 mg PO Q12H 10 days #20 tabs 07/26/22 acetaminophen 500 mg capsule 1,000 mg (2 x 500 mg) PO Q8H PRN 10/05/24 fever or pain #14 caps famotidine 40 mg tablet 40 mg PO DAILY #30 tabs 10/05/24 metformin 500 mg tablet 500 mg PO BID #90 tabs 10/05/24 Allergies Allergy/AdvReac Type Severity Reaction Status Date / Time aspirin [ASPIRIN] Allergy Severe UNKNOWN Verified 10/05/24 10:27 Review of Systems Review of Systems: Yes all other systems are reviewed and are negative [facility] Past Medical History Medical History Back pain Diabetes Hyperlipidemia Hypertension Smoker Family History Family History Maternal Grandmother Diabetes Alzheimer disease Father Cancer Diabetes Maternal Aunt Cancer Maternal Aunt Cancer Social History Social History Household Members: Spouse Alcohol intake: current Alcohol intake frequency: holidays/special occasions only Cigarette Packs Per Day: 1 Cigarettes Per Day: 1 Smoked in Last 30 Days: Yes Use of substances other than those prescribed or required for medical reasons: Yes Substance Use Type: Marijuana Advance Directives: No Advance Directives Information Provided: Yes Physical Exam ED Vital Signs: Vital Signs - 24 hr 10/05/24 10:25 10/05/24 12:30 10/05/24 14:00 Temperature 98.8 F 97.9 F 98.3 F Pulse Rate 72 54 56 Respiratory Rate 16 16 16 Blood Pressure 133/74 116/67 100/64 Pulse Oximetry 100 97 98 Oxygen Delivery Method Room Air Room Air Room Air 10/05/24 14:34 Temperature 98.3 F Pulse Rate 56 Respiratory Rate 16 Blood Pressure 100/64 Pulse Oximetry 98 Oxygen Delivery Method Room Air BMI result Body Mass Index 32.2 Const Other: The patient is awake, alert, pleasant, cooperative. He is not appear obviously acutely ill or in distress or toxic. Orientation/consciousness: patient oriented x3 HENMT Other: Face is symmetrical, mucous membranes moist. Eyes General: appearance normal, both eyes and all related structures Neck Neck: Yes normal visual inspection, Yes full ROM, Yes no lymphadenopathy and Yes no JVD Resp Effort & Inspection: normal respiratory effort Auscultation: clear to auscultation bilaterally Cardio Rate: regular rate Rhythm: regular rhythm Heart sounds: S1 normal heart sound present and S2 normal heart sound present GI Other: The patient was tender in the right upper quadrant. The abdomen was otherwise soft. General: Yes no CVA tenderness Back/Spine/Pelvis Back: no CVA tenderness Skin Other: Skin is dry and unremarkable General skin exam: no rashes or lesions noted Neuro General: patient oriented x3, gait normal, tone normal, moves all extremities, no focal motor deficits and CN's II-XI intact bilaterally Extrem General: Yes no pedal edema and Yes no calf tenderness Medications Administered Discontinued Medications Generic Name Dose Route Start Last Admin Trade Name Freq PRN Reason Stop Dose Admin Sodium Chloride 1,000 mls @ 999 mls/hr 10/05/24 11:30 10/05/24 12:07 Ns IV 10/05/24 12:30 999 mls/hr .Q1H1M ROSENDO Administration Acetaminophen 1,000 mg in 100 mls @ 400 mls/hr 10/05/24 11:20 10/05/24 12:08 Ofirmev IV 10/05/24 11:34 400 mls/hr ONCE ONE Administration Iohexol 100 ml 10/05/24 13:22 10/05/24 13:22 Iohexol 350 Mg/Ml 100 Ml Infus..Btl IV 10/05/24 13:23 85 ml ONCE ONE Administration Medical Decision Making Medical Decision Making [facility] Narrative: The patient is a 39-year-old male who comes for evaluation of right-sided upper abdominal pain. He states that he has had the pain for over a year but it is more recently significantly worse. He went to a different hospital yesterday but that was a long wait and he left the emergency room. The patient is a long-time smoker. The patient has a history of type 2 diabetes but has not been on any medications for a long time. He has not seen a primary care doctor for a long time either. Clinically the patient did not look obviously acutely ill. The patient seems particularly worried that he might have cancer. The patient's workup in the emergency room was essentially negative. He had a negative gallbladder ultrasound, a negative chest x-ray, and a negative CT scan of the abdomen and pelvis. Labs were unremarkable Although a hemoglobin A1c was 10.6. The patient was reassured that there does not seem to be any acutely dangerous process. He will be started on metformin. He should work on getting a PCP for ongoing care. He was given PCP contact information. . Lab Data 10/05/24 10:35 10/05/24 10:35 Labs: Lab Results 10/05/24 10/05/24 Range/Units 10:35 12:07 WBC 9.7 (4.8-10.8) X10*3/uL RBC 4.86 (4.60-5.80) X10*6/uL Hgb 13.9 L (14.0-18.0) g/dl Hct 39.8 L (42.0-52.0) % MCV 81.9 (80.0-98.0) fL MCH 28.6 (27.0-33.0) pg MCHC 34.9 (31.0-36.0) g/dl RDW 12.4 (11.0-16.0) % Plt Count 217 (160-400) X10*3/uL MPV 10.3 (9.4-12.4) fL Immature Gran % (Auto) 0.4 (0.0-0.4) % Neut % (Auto) 66.2 (45-73) % Lymph % (Auto) 24.8 (20-40) % [place] % (Auto) 6.0 (2-11) % Eos % (Auto) 2.4 (0-4) % Baso % (Auto) 0.2 (0-2) % Lymph # (Auto) 2.4 (1.2-4.9) X10*3/uL [place] # (Auto) 0.6 (0.1-1.2) X10*3/uL Eos # (Auto) 0.2 (0.0-0.4) X10*3/uL Baso # (Auto) 0.0 (0.0-0.2) X10*3/uL Abs Immat Gran (auto) 0.04 H (0.00-0.03) X10*3/uL Absolute Neuts (auto) 6.4 (2.0-8.3) x10*3/uL Absolute Nucleated RBC 0.000 (0.0-0.012) X10*3/uL Nucleated RBC % (auto) 0.0 (0.0-0.2) /100WBC Sodium 137 (135-145) mmol/L Potassium 4.1 (3.3-5.1) mmol/L Chloride 102 (96-108) mmol/L Carbon Dioxide 27 (22-29) mmol/L Anion Gap 12 (12-20) BUN 11 (9-16) mg/dL Creatinine 0.74 (0.5-1.4) mg/dL Estim Creat Clear Calc 157.0 Estimated GFR > 60 Random Glucose 277 H (60-115) mg/dL Estimat Average Glucose 258 mg/dL Hemoglobin A1c % 10.6 H (<6.0) % Calcium 9.4 (8.4-10.2) mg/dL Total Bilirubin 0.4 (0.0-1.0) mg/dL Direct Bilirubin 0.1 (0.0-0.5) mg/dL AST 31 (5-37) U/L ALT 38 (0-40) U/L Alkaline Phosphatase 90 (39-117) U/L C-Reactive Protein 0.80 H (< or = 0.50) mg/dL Total Protein 7.3 (6.5-8.0) g/dL Albumin 4.2 (3.5-5.0) g/dL Lipase 20 (8-78) U/L Urine Color Yellow Urine Appearance Clear Urine pH 7.0 (5.0-9.0) Ur Specific [place] 1.010 (1.005-1.025) Urine Protein Negative (Neg-Trace) mg/dL Urine Glucose (UA) >=1000 H (Negative) mg/dL Urine Ketones Negative (Negative) mg/dL Urine Blood Negative (Negative) Urine Nitrite Negative (Negative) Ur Leukocyte Esterase Negative (Negative) Urine RBC 0-2 (0-2) /HPF Urine WBC 0-5 (0-5) /HPF Ur Squamous Epith Cells 0-2 (0-2) /HPF Urine Bacteria None Seen (None Seen) Hyaline Casts 0-2 (0-2) /LPF Discharge Plan Discharge Clinical Impression: Right upper quadrant abdominal pain, Type 2 diabetes mellitus Patient Disposition: Home, Self-Care Instructions: Type 2 Diabetes Management for Adults (ED) Additional Instructions: Your testing in the emergency room today is very reassuring. Your tests are not revealing any dangerous process at work. However you do have signs of having type 2 diabetes. It would be good for you to take medicine for this condition. I have sent a prescription for metformin. Please take this medication 2 times a day until you follow up with a primary care doctor for additional advice about your diabetes. Please continue your efforts to reduce your smoking. You may take acetaminophen ( Tylenol) as needed for pain. In case your symptoms may in some part be related to a stomach acid problem I have also sent a prescription for famotidine to your pharmacy. Please take this medication daily for awhile to see if it helps your pain. You has been provided with the contact information for multiple primary care doctor offices. Please try to establish a new primary care doctor for ongoing management of your diabetes and any other health concerns. Return to the emergency room if you feel significantly worse. Prescriptions: New acetaminophen 500 mg capsule 1,000 mg PO Q8H PRN (Reason: fever or pain) Qty: 14 0RF famotidine 40 mg tablet 40 mg PO DAILY Qty: 30 0RF metformin 500 mg tablet 500 mg PO BID Qty: 90 0RF No Action insulin glargine 100 unit/mL Cartridge 12 unit SUBCUT QPM tramadol 50 mg tablet 50 mg PO Q6H PRN (Reason: pain (scale score 4-6)) Qty: 14 0RF sulfamethoxazole-trimethoprim [Bactrim] 400-80 mg tablet 1 tab PO DAILY 10 Days Qty: 10 0RF cefuroxime axetil 500 mg tablet 500 mg PO Q12H 10 Days Qty: 20 0RF lisinopril 10 mg tablet 10 mg PO DAILY clotrimazole-betamethasone 1-0.05 % cream 1 appl topical BID 28 Days Qty: 15 0RF Rx Instructions: Apply thin coat 2 times per day Referrals: [facility] [Provider Group] [facility] [Provider Group] [facility] Primary Care, Oct[facility] [Provider Group] [facility] Primary Care, [facility] [Provider Group] [facility] Care, [facility] [Provider Group] [facility] Primary Care [facility] [Provider Group] Anat Beckman MD [Physician] - Interventions: ED Discharge Assessment Last Done: 10/05/24 14:34 Discharge Date/Time: 10/05/24 14:45 Print Language: Amharic
[2024-10-05 11:16] LABS: Alanine Aminotransferase 38 U/L (0-40); Albumin Level 4.2 g/dL (3.5-5.0); Anion Gap 12 (12-20); Aspartate Amino Transferase 31 U/L (5-37); Bilirubin Direct 0.1 mg/dL (0.0-0.5); Bilirubin Total 0.4 mg/dL (0.0-1.0); Blood Urea Nitrogen 11 mg/dL (9-16); Calcium 9.4 mg/dL (8.4-10.2); Carbon Dioxide 27 mmol/L (22-29); Chloride 102 mmol/L (96-108); Estimated Glomerular Filt Rate > 60; Glucose Random 277 mg/dL (60-115); Lipase 20 U/L (8-78); Potassium 4.1 mmol/L (3.3-5.1); Sodium 137 mmol/L (135-145); Total Protein 7.3 g/dL (6.5-8.0)
[2024-10-05 11:32] LABS: Alkaline Phosphatase 90 U/L (39-117)
[2024-10-05 12:03] LABS: Estimated Average Glucose 258 mg/dL; Hemoglobin A1C 329.5774 umol/L; Hemoglobin A1c % 10.6 % (<6.0)
[2024-10-05] MEDS: 0.9 % Sodium Chloride 1,000 ML 999 ML IV (12:07)
[2024-10-05] MEDS: Acetaminophen 1,000 MG/100 ML PIGGYBACK 400 MG IV (12:08)
[2024-10-05 12:13] LABS: Appearance Urine Clear; Color Urine Yellow; Glucose Urine UA >=1000 mg/dL (Negative); Leukocyte Esterase Urine Negative (Negative); Nitrite Urine Negative (Negative); UMIC TRIGGER UACC YES; Urine Blood Negative (Negative); Urine Ketones Negative (Negative); Urine Protein Negative (Neg-Trace)
[2024-10-05 12:30] VITALS: BP 116/67; PULSE 54; RESP 16; TEMP 36.6; O2SAT 97
[2024-10-05 12:36] LABS: Bacteria Urine None Seen (None Seen); Hyaline Casts Urine 0-2 /LPF (0-2); RBC Urine 0-2 /HPF (0-2); Squamous Epithelial Cell Urine 0-2 /HPF (0-2); WBC Urine 0-5 /HPF (0-5)
--- OUTSIDE RECORDS SUMMARY | 2024-10-05 12:36 | XMS_ITS | Encounter Summary ---
Author Organization [facility] Address [address] [place] [address] Care Team Providers Care Dairy Clerk Name Role Phone Physician, No Pcp Primary Care Provider Unavaila ble Reason for Visit * Reason Comments Flank Pain Awakened with flank/ right side- no injury- Onset today Encounter Details Date Type Department Care Team (Late st Contact Info) Description 10/04/2024 5:37 PM EDT - 10/05/2024 3:14 AM EDT Emergency [facility] Emergency [address] [place] [id number] Discharge Disposition: Home or Self Care Social History Tobacco Use Types Packs/Day Years Used Date Smoking Tobacco: Every Day Cigarettes Tobacco Cessation:Ready to Q uit: Not Asked; Counseling Given: Not Answered Alcohol Use Standard Drinks/Week Comments Never 0 (1 standard drink = 0.6 oz pur e alcohol) Sex and Gender Information Value Date Recorded Sex Assigned at Not on file Legal Sex Male 12:19 AM EST Gender Identity Not on file Sexual Orientation Not on file documented as of this encounter Last Filed Vital Signs Vital Sign Reading Time Taken Comments Blood Pressure 123/85 10/04/2024 9:14 PM EDT Pulse 71 10/04/2024 9:14 PM EDT Temperature 36.5 ??C (97.7 ??F) 10/04/2024 9:14 PM ED T Respiratory Rate 18 10/04/2024 9:14 PM EDT Oxygen Saturation 100% 10/04/2024 9:14 PM EDT Inhaled Oxygen Concentration - - Weight 98.4 kg (217 lb) 10/04/2024 6:02 PM EDT Height 175.3 cm (5' 9 ) 10/04/2024 6:02 PM EDT Body Mass Index 32.05 10/04/2024 6:02 PM EDT documented in this encounter Discharge Disposition Disposition Code Departure Means Destination Home or Self Care documented in this encounter Progress Notes * Huma Harmon RN - 10/04/2024 5:50 PM EDT Patient with c/o right flank pain - onset this am. No difficulty with urination. States pain radiates to the front. Sharp with inspiration. Does not worsen with movement. +nausea documented in this encounter Plan of Treatment Pending Results Name Type Priority Associated Diagnoses Date /Time Culture urine Microbiology STAT 6:03 PM EDT Scheduled Orders Name Type Priority Associated Diagnoses Orde r Schedule Culture urine Microbiology Routine Once for 1 Occurrences starting 10/04/2024 until 10/04/2024 documented as of this encounter Procedures Procedure Name Priority Date/Time Associated Diagnosis Comments URINALYSIS WITH REFLEX MICROSCOPIC AND CULTURE STAT 10/04/2024 6:03 PM EDT MCINTYRE URINE CULTURE TUBE STAT 10/04/2024 6:03 PM EDT URINALYSIS WITH REFLEX MICROSCOPIC AND CULTURE STAT 10/04/2024 6:03 PM EDT CBC WITH AUTO DIFFERENTIAL STAT 10/04/2024 6:01 PM EDT CBC AND DIFFERENTIAL STAT 10/04/2024 6:01 PM EDT COMPREHENSIVE METABOLIC PANEL STAT 10/04/2024 6:01 PM EDT documented in this encounter Results * Mcintyre urine culture tube (10/04/2024 6:03 PM EDT) Extra Tube Hold for add-ons. 10/04/2024 8:01 PM EDT [facility] Comment:Auto resulted. Urine Urine specimen obtained by clean catch procedure / Unknown Non-blood Collection / Unknown 10/04/2024 6:03 PM EDT 10/04/2024 6:19 PM EDT us Milton Aguiar MD LAB URINE ORDERABLES Final Resu lt [facility] [address] [place] [address], [place] [phone] * (ABNORMAL) Urinalysis with reflex microscopic and culture (10/04/2024 6:03 PM EDT) Specific [place] Urine 1.023 1.003 - 1.030 LAB URINALYSIS - AUTOMATED METHOD [facility] pH, Urine 6.5 5.0 - 8.0 pH LAB URINALYSIS - AUTOMATED METHOD 10/04/2024 6:44 PM [facility] Leukocytes, Urine Trace(A) Negative LAB URINALYSIS - AUTOMATED METHOD 10/04/2024 6:44 PM [facility] Nitrite, Urine Negative Negative LAB URINALYSIS - AUTOMATED METHOD 10/04/2024 6:44 PM [facility] Protein, Urine Trace <=Trace mg/dL LAB URINALYSIS - AUTOMATED METHOD 10/04/2024 6:44 PM [facility] Glucose, Urine 500(A) Negative mg/dL LAB URINALYSIS - AUTOMATED METHOD 10/04/2024 6:44 PM [facility] Ketones, Urine Negative Negative mg/dL LAB URINALYSIS - AUTOMATED METHOD 10/04/2024 6:44 PM [facility] Urobilinogen, Urine 0.2 0.2 - 1.0 mg/dL LAB URINALYSIS - AUTOMATED METHOD 10/04/2024 6:44 PM [facility] Bilirubin, Urine Negative Negative LAB URINALYSIS - AUTOMATED METHOD 10/04/2024 6:44 PM [facility] Blood, Urine Negative Negative LAB URINALYSIS - AUTOMATED METHOD 10/04/2024 6:44 PM [facility] RBC, Urine 2.3 0 - 4 /HPF LAB URINALYSIS - AUTOMATED METHOD 10/04/2024 6:44 PM EDT [facility] WBC, Urine 5.1(H) 0 - 4 /HPF LAB URINALYSIS - AUTOMATED METHOD 10/04/2024 6:44 PM EDT [facility] Squamous Epithelial, Urine 42 0 - 60 /LPF LAB URINALYSIS - AUTOMATED METHOD 10/04/2024 6:44 PM EDT [facility] Bacteria, Urine Negative Negative /HPF LAB URINALYSIS - AUTOMATED METHOD 10/04/2024 6:44 PM EDT [facility] Hyaline Casts, Urine 1.2 0 - 3 /LPF LAB URINALYSIS - AUTOMATED METHOD 10/04/2024 6:44 PM EDT [facility] Urine Urine specimen obtained by clean catch procedure / Unknown Non-blood Collection / Unknown 10/04/2024 6:03 PM EDT 10/04/2024 6:19 PM EDT us Milton Aguiar MD LAB URINE ORDERABLES Final Resu lt [facility] [address] [place] [address], [place] [phone] * (ABNORMAL) CBC auto differential (10/04/2024 6:01 PM EDT) WBC 11.9(H) 4.8 - 10.8 K/mcL LAB HEMETOLOGY METHOD 10/04/2024 6:42 PM EDT [facility] RBC 5.00 4.50 - 5.50 M/mcL LAB HEMETOLOGY METHOD 10/04/2024 6:42 PM EDT [facility] Hemoglobin 14.1 13.5 - 17.5 g/dL LAB HEMETOLOGY METHOD 10/04/2024 6:42 PM EDT [facility] Hematocrit 41.6(L) 42.0 - 54.0 % LAB HEMETOLOGY METHOD 10/04/2024 6:42 PM EDT [facility] MCV 83.5 79.0 - 98.0 FL LAB HEMETOLOGY METHOD 10/04/2024 6:42 [facility] MCH 28.3 27.0 - 32.0 pcg LAB HEMETOLOGY METHOD 10/04/2024 6:42 PM EDT [facility] MCHC 33.9 32.0 - 37.0 g/dL LAB HEMETOLOGY METHOD 10/04/2024 6:42 [facility] RDW 12.3 11.0 - 15.0 % LAB HEMETOLOGY METHOD 10/04/2024 6:42 [facility] Platelets 241 130 - 400 K/mcL LAB HEMETOLOGY METHOD 10/04/2024 6:42 [facility] MPV 10.8 7.0 - 11.0 FL LAB HEMETOLOGY METHOD 10/04/2024 6:42 [facility] NRBC 0.0 <1.0 % LAB HEMETOLOGY METHOD 10/04/2024 6:42 PM [facility] NRBC Absolute 0.00 <0.10 K/mcL LAB HEMETOLOGY METHOD 10/04/2024 6:42 PM [facility] Neutrophils Relative 66.8 % LAB HEMETOLOGY METHOD 10/04/2024 6:42 PM EDT [facility] Lymphocytes Relative 23.4 % LAB HEMETOLOGY METHOD 10/04/2024 6:42 [facility] Monocytes Relative 6.8 % LAB HEMETOLOGY METHOD 10/04/2024 6:42 PM [facility] Eosinophils Relative 2.4 % LAB HEMETOLOGY METHOD 10/04/2024 6:42 [facility] Basophils Relative 0.3 % LAB HEMETOLOGY METHOD 10/04/2024 6:42 PM EDT [facility] Immature Granulocytes Relative 0.3 % LAB HEMETOLOGY METHOD 10/04/2024 6:42 PM EDT [facility] Neutrophils Absolute 7.92(H) 1.50 - 7.00 K/mcL LAB HEMETOLOGY METHOD 10/04/2024 6:42 PM EDT [facility] Lymphocytes Absolute 2.77 1.00 - 5.00 K/mcL LAB HEMETOLOGY METHOD 10/04/2024 6:42 PM EDT [facility] Monocytes Absolute 0.81 0.20 - 1.00 K/mcL LAB HEMETOLOGY METHOD 10/04/2024 6:42 PM EDT [facility] Eosinophils Absolute 0.28 0.00 - 0.50 K/mcL LAB HEMETOLOGY METHOD 10/04/2024 6:42 PM EDT [facility] Basophils Absolute 0.03 0.00 - 0.20 K/mcL LAB HEMETOLOGY METHOD 10/04/2024 6:42 PM EDT [facility] Immature Granulocytes Absolute 0.04(H) 0.00 - 0.03 K/mcL LAB HEMETOLOGY METHOD 10/04/2024 6:42 PM EDT [facility] Blood Venous blood specimen / Unknown Venipuncture / Unknown 10/04/2024 6:01 PM EDT 10/04/2024 6:20 PM EDT us Milton Aguiar MD LAB BLOOD ORDERABLES Final Resu lt [facility] [address] [place] [address], * (ABNORMAL) Comprehensive metabolic panel (10/04/2024 6:01 PM EDT) Sodium 136 133 - 145 mmol/L LAB CHEMISTRY METHOD 10/04/2024 6:57 PM [facility] Potassium 4.0 3.5 - 5.5 mmol/L LAB CHEMISTRY METHOD 10/04/2024 6:57 PM [facility] Chloride 102 96 - 110 mmol/L LAB CHEMISTRY METHOD 10/04/2024 6:57 PM [facility] CO2 25 21 - 32 mmol/L LAB CHEMISTRY METHOD 10/04/2024 6:57 PM [facility] Anion Gap 9 3 - 11 LAB CHEMISTRY METHOD 10/04/2024 6:57 PM [facility] Glucose 208(H) 70 - 100 mg/dL LAB CHEMISTRY METHOD 10/04/2024 6:57 PM [facility] BUN 12 5 - 25 mg/dL LAB CHEMISTRY METHOD 10/04/2024 6:57 PM [facility] Creatinine 0.63(L) 0.70 - 1.30 mg/dL LAB CHEMISTRY METHOD 10/04/2024 6:57 PM [facility] eGFR 125 >=60 mL/min/1. 73m2 LAB CHEMISTRY METHOD 10/04/2024 6:57 PM [facility] Comment:Calculation based on the Chronic Kidney Disease Epidemiology Collaboration (CKD-EPI) equation refit without adjustment for race. BUN/Creatinine Ratio 19.0 LAB CHEMISTRY METHOD 10/04/2024 6:57 PM [facility] Calcium 9.6 8.5 - 10.5 mg/dL LAB CHEMISTRY METHOD 10/04/2024 6:57 PM [facility] AST (SGOT) 19 10 - 42 unit/L LAB CHEMISTRY METHOD 10/04/2024 6:57 PM [facility] ALT (SGPT) 41 10 - 60 unit/L LAB CHEMISTRY METHOD 10/04/2024 6:57 PM EDT [facility] Alkaline Phosphatase 108 42 - 121 unit/L LAB CHEMISTRY METHOD 10/04/2024 6:57 PM EDT [facility] Total Protein 7.7 6.0 - 8.0 g/dL LAB CHEMISTRY METHOD 10/04/2024 6:57 PM EDT [facility] Albumin 3.9 3.2 - 5.0 g/dL LAB CHEMISTRY METHOD 10/04/2024 6:57 PM EDT [facility] Total Bilirubin 0.6 0.0 - 1.4 mg/dL LAB CHEMISTRY METHOD 10/04/2024 6:57 PM EDT [facility] Blood Venous blood specimen / Unknown Venipuncture / Unknown 10/04/2024 6:01 PM EDT 10/04/2024 6:20 PM EDT us Milton Aguiar MD LAB BLOOD ORDERABLES Final Resu lt [facility] [address] [place] [address], [place] [phone] documented in this encounter Visit Diagnoses Not on filedocumented in this encounter Care Teams Dairy Clerk Relationship Specialty Start Date End Date Physician, No Pcp PCP - General 10/04/24 documented as of this encounter
--- OUTSIDE RECORDS SUMMARY | 2024-10-05 12:36 | XMS_ITS | Clinical Summary ---
Author Organization [facility] Address [address] [place] [address] Phone Care Team Providers Care Stock And Station Agent Name Role Phone Physician, No Pcp Primary Care Provider Unavaila ble Allergies Active Allergy Reactions Criticality Noted Date Comments Aspirin Anaphylaxis High 10/04/2024 Encounters Date Type Department Care Team Description 10/04/2024 5:37 PM EDT - 10/05/2024 3:14 AM EDT Emergency [facility] Emergency [address] [place] [address] Discharge Disposition: Home or Self Care from Last 3 Months Medical History Medical History Date Comments Diabetes ([facility] V24, [facility] V28) Social History Tobacco Use Types Packs/Day Years [...] on file Sexual Orientation Not on file Obstetrics History Last Filed Vital Signs Vital Sign Reading [...] Mass Index 32.05 10/04/2024 6:02 PM EDT Plan of Treatment Health Maintenance Due Date Last Done Comments Hepatitis B Vaccines (1 of 3 - 19+ 3-dose series) 2005 01/02/2022, 11/28/2021 COVID-19 Vaccine (3 - 2023-2 5 season) 2024 08/30/2020, 08/02/2020 Influenza Vaccine (Season Ended) 2025 04/08/2017 DTaP,Tdap,and Td Vaccines (2 - Td or Tdap) 04/08/2027 04/08/2017 HIB Vaccines Aged Out No longer eligi ble based on patient's age to complete this topic HPV Vaccines Aged Out No longer eligi ble based on patient's age to complete this topic Hepatitis A Vaccines Aged Out No long er eligible based on patient's age to complete this topic IPV Vaccines Aged Out No longer eligi ble based on patient's age to complete this topic MMR Vaccines Aged Out No longer eligi ble based on patient's age to complete this topic Meningococcal ACWY Vaccine Aged Out N o longer eligible based on patient's age to complete this topic Meningococcal B Vaccine Aged Out No l onger eligible based on patient's age to complete this topic Pneumococcal Vaccine: Pediatrics (0 to 5 Years) and At-Risk Patients (6 to 64 Years) Aged Out No longer eligible b ased on patient's age to complete this topic RSV Immunization Patients Under 20 months Aged Out No longer eligible b ased on patient's age to complete this topic Varicella Vaccines Aged Out No longer eligible based on patient's age to complete this topic Procedures Procedure Name Priority Date/Time Associated Diagnosis Comments MCINTYRE URINE CULTURE TUBE STAT 10/04/2024 6:03 PM EDT URINALYSIS WITH REFLEX MICROSCOPIC AND CULTURE STAT 10/04/2024 6:03 PM EDT URINALYSIS WITH REFLEX MICROSCOPIC AND CULTURE STAT 10/04/2024 6:03 PM EDT CBC WITH AUTO DIFFERENTIAL STAT 10/04/2024 6:01 PM EDT COMPREHENSIVE METABOLIC PANEL STAT 10/04/2024 6:01 PM EDT CBC AND DIFFERENTIAL STAT 10/04/2024 6:01 PM EDT from Last 3 Months Results * (ABNORMAL) Urinalysis with reflex microscopic and culture (10/04/2024 6:03 PM EDT) Specific [place] Urine 1.023 1.003 - 1.030 LAB URINALYSIS - AUTOMATED METHOD 10/04/2024 6:44 PM [facility] pH, Urine 6.5 5.0 - [...] - AUTOMATED METHOD 10/04/2024 6:44 PM EDT [facility] WBC, Urine 5.1(H) 0 - 4 /HPF LAB URINALYSIS - AUTOMATED METHOD 10/04/2024 6:44 PM EDT [facility] Squamous Epithelial, Urine 42 0 - 60 /LPF LAB URINALYSIS - AUTOMATED METHOD 10/04/2024 6:44 PM EDT [facility] Bacteria, Urine Negative Negative /HPF LAB URINALYSIS - AUTOMATED METHOD 10/04/2024 6:44 PM EDT [facility] Hyaline Casts, Urine 1.2 0 - 3 /LPF LAB URINALYSIS - AUTOMATED METHOD 10/04/2024 6:44 PM EDT [facility] Urine Urine specimen obtained by clean catch procedure / Unknown Non-blood Collection / Unknown 10/04/2024 6:03 PM EDT 10/04/2024 6:19 PM EDT us Milton Aguiar MD LAB URINE ORDERABLES Final Resu lt Performing Organization Address [facility]/ZIP Co de Phone Number [facility] [address] [place] [address], [place] [phone] * Mcintyre urine culture tube (10/04/2024 6:03 PM EDT) Extra Tube Hold for add-ons. 10/04/2024 8:01 PM EDT [facility] Comment:Auto resulted. Urine Urine specimen obtained by clean catch procedure / Unknown Non-blood Collection / Unknown 10/04/2024 6:03 PM EDT 10/04/2024 6:19 PM EDT us Milton Aguiar MD LAB URINE ORDERABLES Final Resu lt Performing Organization Address [facility]/ZIP Co de Phone Number [facility] [address] [place] [address], [place] [phone] * (ABNORMAL) CBC auto differential (10/04/2024 6:01 PM EDT) [facility] WBC 11.9(H) 4.8 - 10.8 K/mcL LAB HEMETOLOGY METHOD 10/04/2024 6:42 PM EDT [facility] RBC 5.00 4.50 - 5.50 M/mcL LAB HEMETOLOGY METHOD 10/04/2024 6:42 PM EDT [facility] Hemoglobin 14.1 13.5 - 17.5 g/dL LAB HEMETOLOGY [facility] Hematocrit 41.6(L) 42.0 - 54.0 % LAB HEMETOLOGY METHOD [facility] MCV 83.5 79.0 - 98.0 FL LAB HEMETOLOGY METHOD [facility]24 [facility] MCH 28.3 27.0 - 32.0 pcg LAB HEMETOLOGY METHOD 10/04[facility]24 [facility] MCHC 33.9 32.0 - 37.0 g/dL LAB HEMETOLOGY METHOD 10/04/2024 6:42 PM [facility] RDW 12.3 11.0 - 15.0 % LAB HEMETOLOGY METHOD 10/04[facility]2024 6[facility] Platelets 241 130 - 400 K/mcL LAB HEMETOLOGY METHOD 10/04[facility]2024 6[facility] MPV 10.8 7.0 - 11.0 FL LAB HEMETOLOGY METHOD 10/04[facility]2024 6[facility] NRBC 0.0 <1.0 % LAB HEMETOLOGY METHOD [facility]24 [facility] NRBC Absolute 0.00 <0.10 K/mcL LAB HEMETOLOGY METHOD 10/04/2024 6:42 PM [facility] Neutrophils Relative 66.8 % LAB HEMETOLOGY METHOD 10/04/2024 6:42 PM [facility] Lymphocytes Relative 23.4 % LAB HEMETOLOGY METHOD 10/04/2024 6:42 PM [facility] Monocytes Relative 6.8 % LAB HEMETOLOGY METHOD 10/04/2024 6:42 PM [facility] Eosinophils Relative 2.4 % LAB HEMETOLOGY METHOD 10/04/2024 6:42 PM [facility] Basophils Relative 0.3 % LAB HEMETOLOGY METHOD 10/04/2024 6:42 PM [facility] Immature Granulocytes Relative 0.3 % LAB HEMETOLOGY METHOD 10/04/2024 6:42 PM [facility] Neutrophils Absolute 7.92(H) 1.50 - 7.00 K/mcL LAB HEMETOLOGY METHOD 10/04/2024 6:42 PM [facility] Lymphocytes Absolute 2.77 1.00 - 5.00 K/mcL LAB HEMETOLOGY METHOD 10/04/2024 6:42 PM [facility] Monocytes Absolute 0.81 0.20 - 1.00 K/mcL LAB HEMETOLOGY METHOD 10/04/2024 6:42 PM [facility] Eosinophils Absolute 0.28 0.00 - 0.50 K/mcL LAB HEMETOLOGY METHOD 10/04/2024 6:42 PM [facility] Basophils Absolute 0.03 0.00 - 0.20 K/mcL LAB HEMETOLOGY METHOD 10/04/2024 6:42 PM [facility] Immature Granulocytes Absolute 0.04(H) 0.00 - 0.03 K/mcL LAB HEMETOLOGY METHOD 10/04/2024 6:42 PM [facility] Blood Venous blood specimen / Unknown Venipuncture / Unknown 10/04/2024 6:01 PM EDT 10/04/2024 6:20 PM EDT us Milton Aguiar MD LAB BLOOD ORDERABLES Final Resu lt [facility] [address] [place] [address], * (ABNORMAL) Comprehensive metabolic panel (10/04/2024 6:01 [...] 19.0 LAB CHEMISTRY METHOD 10/04/2024 6:57 PM T [facility] Calcium 9.6 8.5 - 10.5 mg/dL LAB CHEMISTRY METHOD 10/04/2024 6:57 PM [facility] AST (SGOT) 19 10 - 42 unit/L LAB CHEMISTRY METHOD 10/04/2024 6:57 PM T [facility] ALT (SGPT) 41 10 - 60 unit/L LAB CHEMISTRY METHOD 10/04/2024 6:57 PM [facility] Alkaline Phosphatase 108 42 - 121 unit/L LAB CHEMISTRY METHOD 10/04/2024 6:57 PM [facility] Total Protein 7.7 6.0 - 8.0 g/dL LAB CHEMISTRY METHOD 10/04/2024 6:57 PM [facility] Albumin 3.9 3.2 - 5.0 g/dL LAB CHEMISTRY METHOD 10/04/2024 6:57 PM [facility] Total Bilirubin 0.6 0.0 - 1.4 mg/dL LAB CHEMISTRY METHOD 10/04/2024 6:57 PM [facility] Blood Venous blood specimen / Unknown Venipuncture / Unknown 10/04/2024 6:01 PM EDT 10/04/2024 6:20 PM EDT us Milton Aguiar MD LAB BLOOD ORDERABLES Final Resu lt [facility] [address] [place] [address], [place] [phone] from Last 3 Months Care Teams Stock And Station Agent Relationship Specialty Start Date End Date Physician, No Pcp PCP - General 10/04/24
[2024-10-05] MEDS: iohexoL 350 MG/ML 100 ML INFUS..BTL IV (13:22)
[2024-10-05 14:00] VITALS: BP 100/64; PULSE 56; RESP 16; TEMP 36.8; O2SAT 98
[2024-10-05 14:34] VITALS: BP 100/64; PULSE 56; RESP 16; TEMP 36.8; O2SAT 98
== END 2024-10-05 14:45 | disposition home or self-care (01) ==
PROVIDERS: Emergency Provider Emergency Medicine; PCP Physical Medicine & Rehabilitation
DX: R10.811 Right upper quadrant abdominal tenderness (principal); R10.11 Right upper quadrant pain; E11.9 Type 2 diabetes mellitus without complications; F17.210 Nicotine dependence, cigarettes, uncomplicated; R07.89 Other chest pain; Z79.4 Long term (current) use of insulin; Z79.899 Other long term (current) drug therapy
CPT/HCPCS: 36415; 71046; 74177; 76705; 80053; 81001; 82248; 83036; 83690; 85025; 86140; 96374; 99284; 99285; J0131; Q9967

== ENCOUNTER → 2024-10-05 11:17 | Outpatient (BNV) | payer SELFPAY | PROVIDERS: Emergency Provider Emergency Medicine; PCP Physical Medicine & Rehabilitation; Visit Provider Radiology Diagnostic Radiology | DX: K76.0 Fatty (change of) liver, not elsewhere classified (principal); R10.811 Right upper quadrant abdominal tenderness; R07.9 Chest pain, unspecified | CPT/HCPCS: 71046; 74177; 76705 ==